=== PATIENT | female | born 1985 | race Native Hawaiian/Other Pacific Islander ===

== ENCOUNTER 2021-07-10 12:41 | Inpatient (IN) | payer OTHER ==
[2021-07-10] MEDS ORDERED: MAGNESIUM HYDROX 2400MG/30ML ORAL SUSPENSION 30 ML CUP PO PRN (13:32)
[2021-07-10] MEDS ORDERED: ACETAMINOPHEN 325 MG TABLET (FP) PO PRN ×2 (13:32)
[2021-07-10] MEDS ORDERED: MAG HYDROX/AL HYDROX/SIMETH 30 ML UNIT-DOSE CUP PO PRN (13:32)
[2021-07-10] MEDS ORDERED: IBUPROFEN 400 MG TABLET (FP) PO PRN (13:32)
[2021-07-10] MEDS ORDERED: MAGNESIUM CITRATE 300 ML BOTTLE PO PRN (13:32)
[2021-07-10] MEDS ORDERED: MENTHOL/PHENOL 1 EACH UD MM PRN (13:32)
[2021-07-10 13:47] VITALS: BMI 23.8
[2021-07-10] MEDS ORDERED: methaDONE HCL 10 MG TABLET (FOR DETOX USE ONLY) PO ONE ×2 (15:45→18:35)
[2021-07-10] MEDS: ONDANSETRON *ODT* 4 MG TABLET SL PRN (18:05)
[2021-07-10] MEDS: hydrOXYzine PAMOATE 25 MG CAPSULE (FP) PO SCH ×3 (18:06→22:45)
[2021-07-10] MEDS ORDERED: TRIMETHOBENZAMIDE HCL 200MG/2ML INJ IM ONE (18:13)
[2021-07-10] MEDS: NICOTINE 10 MG CARTRIDGE (INHALER) IH PRN (20:24)
[2021-07-10] MEDS ORDERED: MELATONIN 5 MG TABLETS PO SCH (22:00)
[2021-07-10] MEDS: THIAMINE HCL 100 MG TABLET (FP) PO SCH (22:45)
[2021-07-10] MEDS: SUVOREXANT 10 MG TABLET PO PRN (22:47)
[2021-07-10] MEDS ORDERED: methaDONE HCL 10 MG TABLET (FOR DETOX USE ONLY) ONE (22:47)
[2021-07-11] MEDS: hydrOXYzine PAMOATE 25 MG CAPSULE (FP) PO SCH ×6 (06:23→23:14)
[2021-07-11] MEDS: ONDANSETRON *ODT* 4 MG TABLET SL PRN ×2 (06:23→17:34)
[2021-07-11] MEDS ORDERED: methaDONE HCL 10 MG TABLET (FOR DETOX USE ONLY) ONE (09:17)
[2021-07-11] MEDS: METHOCARBAMOL 500 MG TABLET PO PRN ×3 (10:41→23:15)
[2021-07-11] MEDS: PRENATAL VITAMINS W/ FOLIC ACID TABLET (FP) PO SCH (10:41)
[2021-07-11] MEDS ORDERED: TRIMETHOBENZAMIDE HCL 200MG/2ML INJ IM PRN (11:42)
[2021-07-11] MEDS: cloNIDine HCL 0.1 MG TABLET PO PRN (18:35)
[2021-07-11] MEDS: THIAMINE HCL 100 MG TABLET (FP) PO SCH ×2 (22:41→23:14)
[2021-07-11] MEDS: SUVOREXANT 10 MG TABLET PO PRN (23:17)
[2021-07-11] MEDS: BISMUTH SUBSALICYLATE 524 MG/30 ML PO PRN (23:19)
[2021-07-12] MEDS: cloNIDine HCL 0.1 MG TABLET PO PRN ×3 (03:08→20:15)
[2021-07-12] MEDS: BISMUTH SUBSALICYLATE 524 MG/30 ML PO PRN (03:08)
[2021-07-12] MEDS: METHOCARBAMOL 500 MG TABLET PO PRN ×3 (05:15→22:35)
[2021-07-12] MEDS: hydrOXYzine PAMOATE 25 MG CAPSULE (FP) PO SCH ×5 (06:13→22:35)
[2021-07-12] MEDS: NICOTINE 10 MG CARTRIDGE (INHALER) IH PRN (09:03)
[2021-07-12] MEDS: PRENATAL VITAMINS W/ FOLIC ACID TABLET (FP) PO SCH (09:26)
[2021-07-12] MEDS ORDERED: methaDONE HCL 10 MG TABLET (FOR DETOX USE ONLY) PO ONE (10:00)
[2021-07-12] MEDS: SUVOREXANT 10 MG TABLET PO PRN (22:34)
[2021-07-12] MEDS: THIAMINE HCL 100 MG TABLET (FP) PO SCH (22:35)
[2021-07-13] MEDS ORDERED: cloNIDine HCL 0.1 MG TABLET PO ONE (03:30)
[2021-07-13] MEDS: NICOTINE 10 MG CARTRIDGE (INHALER) IH PRN ×2 (03:46→10:51)
[2021-07-13] MEDS: METHOCARBAMOL 500 MG TABLET PO PRN ×2 (06:13→14:48)
[2021-07-13] MEDS: hydrOXYzine PAMOATE 25 MG CAPSULE (FP) PO SCH ×2 (06:13→10:48)
[2021-07-13] MEDS ORDERED: methaDONE HCL 10 MG TABLET (FOR DETOX USE ONLY) ONE (09:21)
[2021-07-13] MEDS ORDERED: diazePAM 5 MG TABLET PO ONE (09:45)
[2021-07-13] MEDS ORDERED: TRIMETHOBENZAMIDE HCL 200MG/2ML INJ IM ONE (09:45)
[2021-07-13] MEDS: PRENATAL VITAMINS W/ FOLIC ACID TABLET (FP) PO SCH (10:50)
[2021-07-13 11:30] LABS: HEMATOCRIT 21.7 % (32.4-45.2); MCHC 26.3 g/dl (32.0-36.0); MEAN CELL VOLUME 50.4 fl (80-96); MEAN PLT VOLUME 8.1 fl (7.5-11.1); PLATELET COUNT 793 10^3/uL (134-434); RDW 21.5 % (11.6-15.6); WHITE BLOOD COUNT 7.2 K/mm3 (4.0-10.0)
[2021-07-13 11:31] LABS: MCH 13.2 pg (25.7-33.7)
[2021-07-13 11:34] LABS: HEMOGLOBIN 5.7 GM/dL (10.7-15.3)
[2021-07-13 11:52] VITALS: TEMP 98.2
[2021-07-13 12:50] VITALS: BP 117/68; PULSE 85
[2021-07-13] MEDS ORDERED: propRANOLol HCL 10 MG TABLET PO SCH (14:00)
[2021-07-14] MEDS ORDERED: methaDONE HCL 10 MG TABLET (FOR DETOX USE ONLY) PO ONE (10:00)
[2021-07-14 10:19] LABS: CALCIUM 9.6 mg/dL (8.5-10.1)
[2021-07-14 10:20] LABS: ALBUMIN 3.8 g/dl (3.4-5.0); BLOOD UREA NITROGEN 31.1 mg/dL (7-18)
[2021-07-14 10:23] LABS: CREATININE 2.1 mg/dL (0.55-1.3)
[2021-07-14 10:25] LABS: BILIRUBIN,TOTAL 0.7 mg/dL (0.2-1); TOT PROT 8.2 g/dl (6.4-8.2)
== END 2021-07-14 00:31 | disposition short-term general hospital (02) | DRG 773 ==
LOC: YASAS 12:41 → Y6N 15:38
PROVIDERS: ADMIT Allergy & Immunology; ATTEND Allergy & Immunology
PROC: HZ2ZZZZ Detoxification Services for Substance Abuse Treatment (ICD-10-PCS; principal; 2021-07-10)
DX: F11.23 Opioid dependence with withdrawal (principal); F17.210 Nicotine dependence, cigarettes, uncomplicated; F19.280 Other psychoactive substance dependence with psychoactive substance-induced anxiety disorder; F19.282 Other psychoactive substance dependence with psychoactive substance-induced sleep disorder; F32.A Depression, unspecified; D64.9 Anemia, unspecified; Z85.038 Personal history of other malignant neoplasm of large intestine; Z93.3 Colostomy status; Z56.0 Unemployment, unspecified; Z59.00 Homelessness unspecified
CPT/HCPCS: 36415; 80053; 81025; 85027; 86780; 93005; 93010; C9803; J0735; Q0162; U0003; U0005

== ENCOUNTER 2021-07-13 16:32 | Observation (INO) | payer OTHER ==
[2021-07-13 16:41] VITALS: BMI 24.2
[2021-07-13] MEDS ORDERED: diazePAM CARPU-JECT 10 MG/2 ML DISP.SYRIN IVPUSH ONE ×2 (17:50→20:00)
[2021-07-13] MEDS ORDERED: SODIUM CHLORIDE 0.9% 500 ML INFUS.BAG IV ONE (17:51)
[2021-07-13] MEDS ORDERED: NICOTINE 7 MG/24 HOURS TOPICAL PATCH TD SCH (18:00)
[2021-07-13] MEDS ORDERED: diazePAM CARPU-JECT 10 MG/2 ML DISP.SYRIN ONE ×2 (18:08→20:17)
[2021-07-13 19:21] LABS: BASO % 1.4 % (0-2.0); EOS % 0.2 % (0-4.5); HEMATOCRIT 20.8 % (32.4-45.2); LYMPH % 23.8 % (8-40); MCH 13.2 pg (25.7-33.7); MCHC 26.6 g/dl (32.0-36.0); MEAN CELL VOLUME 49.7 fl (80-96); MEAN PLT VOLUME 8.3 fl (7.5-11.1); MONO % 7.6 % (3.8-10.2); PLATELET COUNT 787 10^3/uL (134-434); RBC 4.17 M/mm3 (3.60-5.2); RDW 20.8 % (11.6-15.6); WHITE BLOOD COUNT 7.1 K/mm3 (4.0-10.0)
[2021-07-13 19:22] LABS: HEMOGLOBIN 5.5 GM/dL (10.7-15.3)
[2021-07-13 20:13] LABS: CHLORIDE 85 mmol/L (98-107); SODIUM 129 mmol/L (136-145)
[2021-07-13 20:15] LABS: CALCIUM 9.2 mg/dL (8.5-10.1)
[2021-07-13 20:16] LABS: ALBUMIN 3.4 g/dl (3.4-5.0); ANION GAP 10 MMOL/L (8-16); BLOOD UREA NITROGEN 31.8 mg/dL (7-18); CO2 34 mmol/L (21-32); GLUCOSE,RANDOM 82 mg/dL (74-106)
[2021-07-13 20:19] LABS: CREATININE 2.1 mg/dL (0.55-1.3); SGOT/AST 10 U/L (15-37); SGPT/ALT 13 U/L (13-61)
[2021-07-13 20:20] LABS: TOT PROT 7.8 g/dl (6.4-8.2)
[2021-07-13 20:21] LABS: BILIRUBIN,TOTAL 0.5 mg/dL (0.2-1)
[2021-07-13 20:22] LABS: ALK PHOS 124 U/L (45-117)
[2021-07-13 20:39] LABS: ANISOCYTOSIS 3+; MACROCYTOSIS 0; OVALOCYTE 1+; PLATELET ESTIMATE INCREASED; TARGET CELLS 2+
[2021-07-13 23:22] LABS: RETICULOCYTES 4.19 % (0.5-1.5)
[2021-07-13 23:37] LABS: LDH 160 U/L (84-246)
[2021-07-13] MEDS ORDERED: cloNIDine HCL 0.1 MG TABLET PO PRN (23:59)
[2021-07-14] MEDS ORDERED: diazePAM CARPU-JECT 10 MG/2 ML DISP.SYRIN ONE ×3 (00:04→16:19)
[2021-07-14] MEDS ORDERED: diazePAM CARPU-JECT 10 MG/2 ML DISP.SYRIN IVPUSH STA (00:25)
[2021-07-14 00:27] LABS: IRON SERUM 18 ug/dL (50-175); TOTAL IRON BINDING CAPACITY 549 ug/dL (250-450)
[2021-07-14 02:51] VITALS: TEMP 98.2
[2021-07-14] MEDS ORDERED: hydrOXYzine PAMOATE 50 MG CAPSULE (FP) PO ONE (02:56)
[2021-07-14] MEDS ORDERED: FERRIC CARBOXYMALTOSE 750 MG in SODIUM CHLORIDE 250 ML IVPB ONE (05:07)
[2021-07-14] MEDS ORDERED: diazePAM CARPU-JECT 10 MG/2 ML DISP.SYRIN IVPUSH ONE ×2 (05:46→15:23)
[2021-07-14] MEDS ORDERED: HEPARIN NA (PORCINE) 5,000 UNITS/ML 1ML VIAL ONE ×2 (06:13→14:14)
[2021-07-14] MEDS: HEPARIN NA (PORCINE) 5,000 UNITS/ML 1ML VIAL SQ SCH ×2 (06:27→14:30)
[2021-07-14] MEDS ORDERED: SODIUM CHLORIDE 1,000 ML IV SCH (06:30)
[2021-07-14] MEDS ORDERED: cloNIDine HCL 0.1 MG TABLET ONE (09:16)
[2021-07-14] MEDS ORDERED: methaDONE HCL 10 MG TABLET ONE (09:16)
[2021-07-14 09:28] LABS: EOS % 0.5 % (0-4.5); HEMATOCRIT 27.3 % (32.4-45.2); HEMOGLOBIN 8.5 GM/dL (10.7-15.3); LYMPH % 19.8 % (8-40); MCHC 31.3 g/dl (32.0-36.0); MEAN CELL VOLUME 59.9 fl (80-96); MEAN PLT VOLUME 8.3 fl (7.5-11.1); MONO % 7.2 % (3.8-10.2); NEUT % 71.5 % (42.8-82.8); PLATELET COUNT 703 10^3/uL (134-434); RBC 4.55 M/mm3 (3.60-5.2); RDW 35.9 % (11.6-15.6); WHITE BLOOD COUNT 6.5 K/mm3 (4.0-10.0)
[2021-07-14 09:33] LABS: MCH 18.8 pg (25.7-33.7)
[2021-07-14] MEDS ORDERED: ENOXAPARIN NA (PORCINE) 40 MG/0.4 ML DISP.SYRIN SQ SCH (10:00)
[2021-07-14] MEDS ORDERED: methaDONE HCL 10 MG TABLET PO ONE (10:00)
[2021-07-14 10:01] LABS: BLOOD UREA NITROGEN 28.8 mg/dL (7-18)
[2021-07-14 10:02] LABS: ALBUMIN 3.5 g/dl (3.4-5.0); CALCIUM 9.4 mg/dL (8.5-10.1)
[2021-07-14 10:05] LABS: CREATININE 1.7 mg/dL (0.55-1.3)
[2021-07-14 10:07] LABS: TOT PROT 7.7 g/dl (6.4-8.2)
[2021-07-14 10:11] LABS: BILIRUBIN,TOTAL 1.4 mg/dL (0.2-1)
[2021-07-14] MEDS ORDERED: POTASSIUM CHLORIDE TABS 20 MEQ TABLET.ER (FP) PO ONE ×2 (12:38→14:17)
[2021-07-14] MEDS ORDERED: propRANOLol HCL 10 MG TABLET PO SCH ×2 (12:45→14:00)
[2021-07-14] MEDS ORDERED: propRANOLol HCL 10 MG TABLET ONE (14:14)
[2021-07-14 14:54] VITALS: BP 106/77; PULSE 64
== END 2021-07-14 16:30 | disposition other institution (70) ==
LOC: JER 16:32 → JERBED 18:03
PROVIDERS: ADMIT Internal Medicine; ATTEND Nurse Practitioner Acute Care
PROC: 3E033NZ Introduction of Analgesics, Hypnotics, Sedatives into Peripheral Vein, Percutaneous Approach (ICD-10-PCS; principal; 2021-07-13)
PROC: 3E033GC Introduction of Other Therapeutic Substance into Peripheral Vein, Percutaneous Approach (ICD-10-PCS; 2021-07-13)
PROC: 3E023GC Introduction of Other Therapeutic Substance into Muscle, Percutaneous Approach (ICD-10-PCS; 2021-07-13)
PROC: 3E0337Z Introduction of Electrolytic and Water Balance Substance into Peripheral Vein, Percutaneous Approach (ICD-10-PCS; 2021-07-13)
PROC: 30233N1 Transfusion of Nonautologous Red Blood Cells into Peripheral Vein, Percutaneous Approach (ICD-10-PCS; 2021-07-13)
DX: D64.9 Anemia, unspecified (principal); N17.9 Acute kidney failure, unspecified; F41.9 Anxiety disorder, unspecified; F11.90 Opioid use, unspecified, uncomplicated; Z88.0 Allergy status to penicillin; Z88.8 Allergy status to other drugs, medicaments and biological substances; Z80.0 Family history of malignant neoplasm of digestive organs; F17.210 Nicotine dependence, cigarettes, uncomplicated
CPT/HCPCS: 36415; 36430; 76775-TC; 80053; 82272; 82550; 82728; 83540; 83550; 83615; 83930; 84443; 84466; 84702; 85025; 85045; 86850; 86900; 86901; 86922; 93005; 93010; 96361; 96365; 96372; 96375; 96376; 99285-25; C9803-CS; G0378; J1439; J1644; P9058; U0003; U0005